=== PATIENT | female | born 1950 | race African-American/Black ===

== ENCOUNTER 2021-10-24 07:27 | Day surgery (SDC) | payer SELFPAY ==
[~2021-10-24] VITALS: Ht 172.7 cm; Wt 87.1 kg
--- NOTE | 2021-10-24 07:45 | NUR ---
71 year old natural female admitted to [facility] bay #2 via ambulation, use of cane and mildly unsteady gait. Daughter is present and is assisting with translation. PT stated she would like to have daughter translate and signed the translation refusal. PT verbalized understanding through daughter. Procedure verified and consent signed. PT verbalized understanding procedure. First and last name + verified with the PT. VSS: BP is elevated and [employer] notified; no new orders recieved. Warm blankets provided. Medications, allergies and HX reviewed. IV started in R wrist on second attempt with 20G. IVF scanned and are infusing without difficulty. PT oriented to room and call clay, within reach. Physical assessment completed.
[2021-10-24] MEDS ORDERED: GLUCOPHAGE500 MG/TAB PO (07:56)
[2021-10-24] MEDS ORDERED: PRILOSEC 20MG20 MG PO (07:57)
[2021-10-24] MEDS ORDERED: COZAAR 50MG50 MG/TAB PO (07:58)
[2021-10-24] MEDS ORDERED: TYLENOL 8 HR PO (07:58)
[2021-10-24] MEDS ORDERED: NORVASC 10MG10 MG PO (07:59)
[2021-10-24] MEDS ORDERED: MOBIC15 MG PO (07:59)
[2021-10-24] MEDS ORDERED: LANTUS100 U/ML SQ (08:00)
[2021-10-24] MEDS ORDERED: VOLTAREN GEL 1%1 TU TP (08:01)
[2021-10-24 08:46] VITALS: BP 162/98; PULSE 117; TEMP 97.6
--- NOTE | 2021-10-24 09:15 | NUR ---
is in to speak with the PT.
--- NOTE | 2021-10-24 11:15 | NUR ---
Daughter was contacted by RN about ETA to facility
[2021-10-24] MEDS ORDERED: NORCO 325 MG-51 TAB PO (11:16)
[2021-10-24] MEDS ORDERED: MOTRIN 600600 MG/TAB PO (11:16)
[2021-10-24 11:45] VITALS: BP 144/72; PULSE 108; TEMP 97.5
--- NOTE | 2021-10-24 11:45 | NUR ---
PT arrived from procedure alert and oriented x3. Daughter is present. Monitors applied and VSS. PT denies pain and nausea. Bandaid appled to lower R incision by Meagan MESA due to small area of pink and exposed skin. NO drainage from site; skin glue is present around the pea-sized spot. Hot tea, ice water and buttered toast provided. PT oriented to room and call clay, within reach.
[2021-10-24 12:00] VITALS: BP 165/74; PULSE 116
--- NOTE | 2021-10-24 12:00 | NUR ---
VSS. PT has finished her toast and tea. PT continues to deny nausea. NO vomiting. Call clay remains within reach.
[2021-10-24 12:15] VITALS: BP 153/85; PULSE 111
--- NOTE | 2021-10-24 12:15 | NUR ---
VSS. PT was then assisted out of bed and ambulated to bathroom with use of cane and daughter. PT voided then back to bed. PT expressed desire to be discharged. Call clay is within reach if needed.
--- NOTE | 2021-10-24 12:30 | NUR ---
IV discontinued. Catheter tip intact. Pressure bandage applied. NO redness or swelling noted. DC instructions reviewed with the PT and her daughter who translated the information. The PT verbalized understanding and signed the realted paperwork. PT denies needing RN assistance changing into personal clothes. PT was then dismissed from [facility] via wheelchair to the PT entrence by Dimitri MESA. PT has DC packet in hand and personal belongings, and was transferred into the care of her daughter, who is driving private car.
--- NOTE | 2021-10-24 13:04 | NUR ---
RN called daughter's cell phone and provided follow up time/date.
== END 2021-10-24 12:35 | disposition home or self-care (01) ==
LOC: EDBD 07:27 → SDCO 07:27
DX: D17.1 Benign lipomatous neoplasm of skin and subcutaneous tissue of trunk (principal); E11.9 Type 2 diabetes mellitus without complications; Z79.84 Long term (current) use of oral hypoglycemic drugs; Z79.4 Long term (current) use of insulin; Z28.310 Unvaccinated for COVID-19; Z28.9 Immunization not carried out for unspecified reason
CPT/HCPCS: J0330; J0690; J1100; J2405; J2704; J3010; J7120